=== PATIENT | female | born 1980 | race Caucasian/White ===

== ENCOUNTER 2017-12-30 14:01 | Emergency (ER) | payer BC ==
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
[2017-12-30] MEDS ORDERED: LET GEL TOPICAL 1 EA SYR TP ONE (14:10)
[2017-12-30] MEDS ORDERED: NS 500 ML IV ONE (14:17)
[2017-12-30] MEDS ORDERED: fentaNYL 100 MCG/2 ML INJ ONE (14:18)
[2017-12-30] MEDS ORDERED: fentaNYL 100 MCG/2 ML INJ IVP ONE ×2 (14:22→15:14)
[2017-12-30 14:36] LABS: PLATELET COUNT 317 10^3/uL (150-400)
[2017-12-30] MEDS ORDERED: CLINDAMYCIN 300 MG in NS 100 ML IV ONE (14:36)
[2017-12-30 14:44] LABS: INR 1.05 (0.83-1.16); PROTIME(PATIENT) 13.9 SEC (12.0-15.0)
[2017-12-30] MEDS ORDERED: CLINDAMYCIN 600 MG/DEXTROSE 50 ML IV ONE (14:45)
[2017-12-30] MEDS ORDERED: OXYCODONE/APAP 5/325 TAB PO ONE (16:59)
[2017-12-30] MEDS ORDERED: HYDROCOD/APAP 5/325 PREPACK#6 BTL TAKEHOME ONE (17:45)
[2017-12-30 18:03] VITALS: BP 113/78
== END 2017-12-30 18:01 | disposition home or self-care (01) ==
LOC: EDSEX 14:01
DX: S06.0X9A Concussion with loss of consciousness of unspecified duration, initial encounter (principal); S03.2XXA Dislocation of tooth, initial encounter; S01.81XA Laceration without foreign body of other part of head, initial encounter; S01.511A Laceration without foreign body of lip, initial encounter; V18.0XXA Pedal cycle driver injured in noncollision transport accident in nontraffic accident, initial encounter; Y92.482 Bike path as the place of occurrence of the external cause
CPT/HCPCS: 82435-PO; 82565-PO; 82947-PO; 84132-PO; 84295-PO; 84520-PO; 85014-PO; 96365; J3010